=== PATIENT | female | born 1990 | race Caucasian/White ===

== ENCOUNTER 2016-06-22 22:18 | Emergency (ER) | payer BC ==
--- NOTE | 2016-06-23 01:42 | ED ORDER SUMMARY ---
..... Patient: PATY ZARATE OrderSheet [facility] VisitID: [id number] [place] [address] 26y, F Registration Date/Time: 06/22/2016 ORDER SHEET Weight: 82.5 kg (stated) Allergies: Albuterol, Sulfa Antibiotics GENERAL ORDERS: CBC w Diff Urgent (22:49 06/22/2016 JQuivey R.N. per protocol) (Ack 22:51 [facility] Switchman) (22:58 [facility]) CMP Urgent (22:49 06/22/2016 JQuivey R.N. per protocol) (Ack 22:51 [facility]) (22:58 [facility]) UA-Culture if indicated Urgent (22:49 06/22/2016 JQuivey R.N. per protocol) (Ack 22:51 [facility]) (0:43 JQuivey R.N.) Lipase Urgent (22:56 06/22/2016 Alexia Cannon) (Ack 22:57 [facility]) (22:58 [facility]) MEDICATION ORDERS: IV FLUIDS: Zofran IV 4 mg (NOW) (22:49 06/22/2016 JQuivey R.N. per protocol) (22:51 JQuivey R.N.) IV NS : initial bolus none -, then 1000 mL/hr (NOW) (22:49 06/22/2016 JQuivey R.N. per protocol) (22:51 JQuivey R.N.) IV NS : initial bolus 1000 mL (1000 mL/hr), then none - for X1 (NOW) (22:55 06/22/2016 Alexia Cannon) (Cancelled: Duplicate Order23:53 JQuivey R.N.) Zofran IV 4 mg (NOW) (00:44 06/23/2016 Alexia Cannon) (0:47 JQuivey R.N.) ORDER SHEET NOTES: [Electronically signed by Danny Pink R.N. (01:58 06/23/2016)] [Electronically signed by Cirilo Miramontes Dr. (05:11 06/28/2016)] [Electronically locked/signed by Danny Pink R.N. (01:58 06/23/2016)]
--- NOTE | 2016-06-23 01:42 | ED CLINICAL REPORT ---
Clinical Report - Physicians/Mid Levels [facility] [address] [place] [address] 06/22/2016 22:19 Patient: PATY ZARATE Arrived- By private vehicle. Historian- patient. HISTORY OF PRESENT ILLNESS Chief Complaint: VOMITING. This started today and is still present. It was abrupt in onset and has been intermittent but is not gone now. No recent travel. She has had nausea and vomiting. No diarrhea, black stools, bloody stools or known contact with a sick individual. She has had mild, crampy abdominal pain (only with vomiting). The pain is described as located in the epigastrium. Has not recently been camping or on antibiotics. Possible bad food exposure (ate at a small [employer] restaurant today for lunch). The illness is described as moderate. (Patient also started to have runny nose and sore throat today). Similar symptoms previously: None. Recent medical care: The patient was seen recently by a health care provider (was evaluated in [facility] for her current . Patient states that she is greater than 20 weeks . Patient reports that this is her third . Patient reports no abnormal studiesresults during this except for what she describes as hyperemesis gravidarum.). REVIEW OF SYSTEMS No chest pain or skin rash. All systems otherwise negative, except as recorded above. PAST HISTORY See nurses notes. Additional Surgeries: no known surgeries. Medications: Vitamins Oral. Allergies: Albuterol. Sulfa Antibiotics. SOCIAL HISTORY Never smoker. No alcohol use or drug use. No recent travel. Is a local resident. ADDITIONAL NOTES The nursing notes have been reviewed. PHYSICAL EXAM Vital Signs: 06/22/2016 22:25 BP: 105/54. HR: 103. RR: 16. O2 saturation: 99%. Temp: 98.5 F. Pain level now: 6/10. Blood pressure normal. Oxygen saturation normal. Appearance: Alert. Oriented X3. No acute distress. Eyes: Pupils equal, round and reactive to light. Eyes normal inspection. ENT: Ears normal. Nose normal. Pharynx normal. Neck: Normal inspection. Neck supple. CVS: Normal heart rate and rhythm. Heart sounds normal. Pulses normal. Respiratory: No respiratory distress. Breath sounds normal. Abdomen: Soft and nontender. Bowel sounds normal. (and the patient with gravid uterus Fundus is palpable above the umbilicus but below the xiphoid process.). Back: Normal inspection. Skin: Skin warm and dry. Normal skin color. No rash. Normal skin turgor. Extremities: Extremities exhibit normal ROM. No lower extremity edema. LABS, X-RAYS, AND EKG Laboratory Tests: UA-Culture if indicated: (SASHA: 06/23/2016 00:45) ( Mscvd 06/23/2016 01:08) Final results Test Result Flag Units (Reference) URINE COLOR YELLOW URINE APPEARANCE CLEAR URINE GLUCOSE NEGATIVE (NEGATIVE) URINE BILIRUBIN NEGATIVE (NEGATIVE) URINE KETONE 2+ (NEGATIVE) URINE SPECIFIC GRAVITY 1.015 (1.010-1.030) URINE PH 6.0 (5.0-8.0) URINE PROTEIN NEGATIVE (NEGATIVE) URINE UROBILINOGEN 0.2 EU/dL (0.2-1.0) URINE NITRITE NEGATIVE (NEGATIVE) URINE BLOOD NEGATIVE (NEGATIVE) URINE LEUK ESTERASE NEGATIVE (NEGATIVE) URINE RBC 0-1 rbc/hpf (0-1) URINE WBC 0-1 wbc/hpf (0-1) URINE EPITHELIAL CELLS 0-1 EPI/hpf (0-5) URINE BACTERIA NONE SEEN (NONE SEEN) URINE COMMENT CULT NOT INDICATED URINE CULTURES ARE SET-UP BASED ON THE FOLLOWING CRITERIA:POSITIVE NITRITEPOSITIVE LEUKOCYTE ESTERASEGREATER THAN 10 WHITE BLOOD CELLSMODERATE (2+) OR GREATER BACTERIA CBC w Diff: (SASHA: 06/22/2016 22:42) ( Mscvd 06/22/2016 22:55) Final results Test Result Flag Units (Reference) WHITE BLOOD COUNT 16.9 H K/uL (4.5-11.5) RED BLOOD COUNT 4.11 M/uL (4.00-5.20) HEMOGLOBIN 12.4 gm/dL (12.0-16.0) HEMATOCRIT 36.1 % (36.0-46.0) MEAN CELL VOLUME 88 fL (80-100) MEAN CORPUSCULAR HGB 30 pg (26-34) MEAN CORPUSCULAR HGB CONC 34 g/dL (31-37) RED CELL DISTRIBUTION WIDTH 13.6 % (11.6-14.8) PLATELET COUNT 333 K/uL (150-400) LYMPH % 7.8 L % (25-40) MONO % 4.1 % (3-14) GRANULOCYTE % 88.1 (53-90) Lipase: (SASHA: 06/22/2016 22:42) ( MsgRcvd 06/22/2016 23:07) Final results Test Result Flag Units (Reference) LIPASE 143 U/L (73-393) CMP: (SASHA: 06/22/2016 22:42) ( MsgRcvd 06/22/2016 23:06) Final results Test Result Flag Units (Reference) GLUCOSE 123 H mg/dL (70-110) BUN 12 mg/dL (7-18) CREATININE 0.5 L mg/dL (0.6-1.3) Estimated GFR >60 mL/min Estimated GFR- >60 mL/min Note: Persistent reduction over 3 months in eGFR<60 mL/min/1.73 m2 defines CKD. Patients with eGFR values>=60 mL/min/1.73 m2 may also have CKD if evidence ofpersistent proteinuria. Additional information may be foundat www.kidney.org. SODIUM 140 mmol/L (136-145) POTASSIUM 4.0 mmol/L (3.5-5.1) CHLORIDE 105 mmol/L (98-107) CARBON DIOXIDE 23 mmol/L (21-32) CALCIUM 8.2 L mg/dL (8.5-10.1) TOTAL PROTEIN 6.9 g/dL (6.4-8.2) ALBUMIN 2.8 L g/dL (3.3-5.0) BILIRUBIN, TOTAL 0.3 mg/dL (0.0-1.0) ALKALINE PHOSPHATASE 95 U/L (46-116) AST (SGOT) 14 L U/L (15-37) ALT (SGPT) 25 U/L (12-78) . PROGRESS AND PROCEDURES Course of Care: The patient is a pleasant 26-year-old female who isgreater than 20 weeks was evaluated by [facility] for her nausea and vomitingthat started earlier today. Patient appears nontoxic and is in no acute distress at this time. Patient with recent new food exposure. Patient without any other concerning elements to her history or examination. Patient be evaluated withcomplete blood cell count, CMP, urinalysis, and lipase. Patient has a nontender abdominal examination. Patient is agreeable to treatment and plan. per patient, MOLD CARRIER states that there is no problems with her at this time. Patient reports normal amount of movement. The patient's workup was noted to be unremarkable. No signs of urinary tract infection. Lipase is not elevated. No signs of acute pancreatitis. Lateralize and blood count are otherwise unremarkable. Because the patient's normal laboratory studies and current , do not feel patient needs to admitted to the hospital require further emergency department evaluation. Patient encouraged to follow up with her primary care doctor and [facility] in regards to her symptoms today. Patient is a stable outpatient candidate. Patient is reliable and has good outpatient resources. Discussed with patient workup, diagnosis, home care, follow-up, and return precautions. All questions answered. The patient expressed understanding of these instructions and was agreeable to them. The patient is able to tolerate by mouth. I discussion with patient in regards to her elevated heart rate. Patient states that she would prefer to manage the elevated heart rate at home. Disposition: Discharged. Condition: good. CLINICAL IMPRESSION Vomiting with nausea. Mild dehydration INSTRUCTIONS Warnings: GENERAL WARNINGS: Return or contact your physician immediately if your condition worsens or changes unexpectedly, if not improving as expected, or if other problems arise. SPECIFICALLY, return if you develop pain, fever, vomiting, the inability to keep fluids down, blood in vomitus, blood in diarrhea, fainting or lightheadedness. Your Current Medications: CONTINUE TAKING THE FOLLOWING MEDICATIONS: Vitamins Oral. Follow-up: Return to the emergency department as needed. Follow up with a specialist your inside wirer in three days. Reason for referral: recheck today's concerns. Summary of care provided to patient via paper. Follow up with your doctor in three days. Reason for referral: recheck today's concerns. Summary of care provided to patient via paper. Screening today revealed the patient's blood pressure to be in the normal range. The patient should follow up with a primary care provider for blood pressure management. Understanding of the discharge instructions verbalized by patient. (Electronically signed by Cirilo Miramontes Dr. 06/28/2016 5:11)
--- NOTE | 2016-06-23 01:42 | ED CLINICAL REPORT ---
Clinical Report - Physicians/Mid Levels [facility] [address] [place] [address] 06/22/2016 22:19 Patient: PATY ZARATE Arrived- By private vehicle. Historian- patient. HISTORY OF PRESENT ILLNESS Chief Complaint: VOMITING. This started today and is still present. It was abrupt in onset and has been intermittent but is not gone now. No recent travel. She has had nausea and vomiting. No diarrhea, black stools, bloody stools or known contact with a sick individual. She has had mild, crampy abdominal pain (only with vomiting). The pain is described as located in the epigastrium. Has not recently been camping or on antibiotics. Possible bad food exposure (ate at a small [employer] restaurant today for lunch). The illness is described as moderate. (Patient also started to have runny nose and sore throat today). Similar symptoms previously: None. Recent medical care: The patient was seen recently by a health care provider (was evaluated in CHEMICAL PRODUCTION MACHINE OPERATOR for her current . Patient states that she is greater than 20 weeks . Patient reports that this is her third . Patient reports no abnormal studiesresults during this except for what she describes as hyperemesis gravidarum.). REVIEW OF SYSTEMS No chest pain or skin rash. All systems otherwise negative, except as recorded above. PAST HISTORY See nurses notes. Additional Surgeries: no known surgeries. Medications: Vitamins Oral. Allergies: Albuterol. Sulfa Antibiotics. SOCIAL HISTORY Never smoker. No alcohol use or drug use. No recent travel. Is a local resident. ADDITIONAL NOTES The nursing notes have been reviewed. PHYSICAL EXAM Vital Signs: 06/22/2016 22:25 BP: 105/54. HR: 103. RR: 16. O2 saturation: 99%. Temp: 98.5 F. Pain level now: 6/10. Blood pressure normal. Oxygen saturation normal. Appearance: Alert. Oriented X3. No acute distress. Eyes: Pupils equal, round and reactive to light. Eyes normal inspection. ENT: Ears normal. Nose normal. Pharynx normal. Neck: Normal inspection. Neck supple. CVS: Normal heart rate and rhythm. Heart sounds normal. Pulses normal. Respiratory: No respiratory distress. Breath sounds normal. Abdomen: Soft and nontender. Bowel sounds normal. (and the patient with gravid uterus Fundus is palpable above the umbilicus but below the xiphoid process.). Back: Normal inspection. Skin: Skin warm and dry. Normal skin color. No rash. Normal skin turgor. Extremities: Extremities exhibit normal ROM. No lower extremity edema. LABS, X-RAYS, AND EKG Laboratory Tests: UA-Culture if indicated: (SASHA: 06/23/2016 00:45) ( Mscvd 06/23/2016 01:08) Final results Test Result Flag Units (Reference) URINE COLOR YELLOW URINE APPEARANCE CLEAR URINE GLUCOSE NEGATIVE (NEGATIVE) URINE BILIRUBIN NEGATIVE (NEGATIVE) URINE KETONE 2+ (NEGATIVE) URINE SPECIFIC GRAVITY 1.015 (1.010-1.030) URINE PH 6.0 (5.0-8.0) URINE PROTEIN NEGATIVE (NEGATIVE) URINE UROBILINOGEN 0.2 EU/dL (0.2-1.0) URINE NITRITE NEGATIVE (NEGATIVE) URINE BLOOD NEGATIVE (NEGATIVE) URINE LEUK ESTERASE NEGATIVE (NEGATIVE) URINE RBC 0-1 rbc/hpf (0-1) URINE WBC 0-1 wbc/hpf (0-1) URINE EPITHELIAL CELLS 0-1 EPI/hpf (0-5) URINE BACTERIA NONE SEEN (NONE SEEN) URINE COMMENT CULT NOT INDICATED URINE CULTURES ARE SET-UP BASED ON THE FOLLOWING CRITERIA:POSITIVE NITRITEPOSITIVE LEUKOCYTE ESTERASEGREATER THAN 10 WHITE BLOOD CELLSMODERATE (2+) OR GREATER BACTERIA CBC w Diff: (SASHA: 06/22/2016 22:42) ( Mscvd 06/22/2016 22:55) Final results Test Result Flag Units (Reference) WHITE BLOOD COUNT 16.9 H K/uL (4.5-11.5) RED BLOOD COUNT 4.11 M/uL (4.00-5.20) HEMOGLOBIN 12.4 gm/dL (12.0-16.0) HEMATOCRIT 36.1 % (36.0-46.0) MEAN CELL VOLUME 88 fL (80-100) MEAN CORPUSCULAR HGB 30 pg (26-34) MEAN CORPUSCULAR HGB CONC 34 g/dL (31-37) RED CELL DISTRIBUTION WIDTH 13.6 % (11.6-14.8) PLATELET COUNT 333 K/uL (150-400) LYMPH % 7.8 L % (25-40) MONO % 4.1 % (3-14) GRANULOCYTE % 88.1 (53-90) Lipase: (SASHA: 06/22/2016 22:42) ( MsgRcvd 06/22/2016 23:07) Final results Test Result Flag Units (Reference) LIPASE 143 U/L (73-393) CMP: (SASHA: 06/22/2016 22:42) ( MsgRcvd 06/22/2016 23:06) Final results Test Result Flag Units (Reference) GLUCOSE 123 H mg/dL (70-110) BUN 12 mg/dL (7-18) CREATININE 0.5 L mg/dL (0.6-1.3) Estimated GFR >60 mL/min Estimated GFR- >60 mL/min Note: Persistent reduction over 3 months in eGFR<60 mL/min/1.73 m2 defines CKD. Patients with eGFR values>=60 mL/min/1.73 m2 may also have CKD if evidence ofpersistent proteinuria. Additional information may be foundat www.kidney.org. SODIUM 140 mmol/L (136-145) POTASSIUM 4.0 mmol/L (3.5-5.1) CHLORIDE 105 mmol/L (98-107) CARBON DIOXIDE 23 mmol/L (21-32) CALCIUM 8.2 L mg/dL (8.5-10.1) TOTAL PROTEIN 6.9 g/dL (6.4-8.2) ALBUMIN 2.8 L g/dL (3.3-5.0) BILIRUBIN, TOTAL 0.3 mg/dL (0.0-1.0) ALKALINE PHOSPHATASE 95 U/L (46-116) AST (SGOT) 14 L U/L (15-37) ALT (SGPT) 25 U/L (12-78) . PROGRESS AND PROCEDURES Course of Care: The patient is a pleasant 26-year-old female who isgreater than 20 weeks was evaluated by CHEMICAL PRODUCTION MACHINE OPERATOR for her nausea and vomitingthat started earlier today. Patient appears nontoxic and is in no acute distress at this time. Patient with recent new food exposure. Patient without any other concerning elements to her history or examination. Patient be evaluated withcomplete blood cell count, CMP, urinalysis, and lipase. Patient has a nontender abdominal examination. Patient is agreeable to treatment and plan. per patient, CHEMICAL PRODUCTION MACHINE OPERATOR states that there is no problems with her at this time. Patient reports normal amount of movement. The patient's workup was noted to be unremarkable. No signs of urinary tract infection. Lipase is not elevated. No signs of acute pancreatitis. Lateralize and blood count are otherwise unremarkable. Because the patient's normal laboratory studies and current , do not feel patient needs to admitted to the hospital require further emergency department evaluation. Patient encouraged to follow up with her primary care doctor and CHEMICAL PRODUCTION MACHINE OPERATOR in regards to her symptoms today. Patient is a stable outpatient candidate. Patient is reliable and has good outpatient resources. Discussed with patient workup, diagnosis, home care, follow-up, and return precautions. All questions answered. The patient expressed understanding of these instructions and was agreeable to them. The patient is able to tolerate by mouth. I discussion with patient in regards to her elevated heart rate. Patient states that she would prefer to manage the elevated heart rate at home. Disposition: Discharged. Condition: good. CLINICAL IMPRESSION Vomiting with nausea. Mild dehydration INSTRUCTIONS Warnings: GENERAL WARNINGS: Return or contact your physician immediately if your condition worsens or changes unexpectedly, if not improving as expected, or if other problems arise. SPECIFICALLY, return if you develop pain, fever, vomiting, the inability to keep fluids down, blood in vomitus, blood in diarrhea, fainting or lightheadedness. Your Current Medications: CONTINUE TAKING THE FOLLOWING MEDICATIONS: Vitamins Oral. Follow-up: Return to the emergency department as needed. Follow up with a specialist your managed care nurse in three days. Reason for referral: recheck today's concerns. Summary of care provided to patient via paper. Follow up with your doctor in three days. Reason for referral: recheck today's concerns. Summary of care provided to patient via paper. Screening today revealed the patient's blood pressure to be in the normal range. The patient should follow up with a primary care provider for blood pressure management. Understanding of the discharge instructions verbalized by patient. (Electronically signed by Cirilo Miramontes Dr. 06/28/2016 5:11)
--- NOTE | 2016-06-23 01:42 | ED NURSING NOTES ---
Clinical Report - Nurses [facility] [address] [place] [address] 06/22/2016 22:19 Patient: PATY ZARATE TRIAGE Triage time 22:25. Acuity: LEVEL 3. Chief Complaint: ABDOMINAL PAIN, NAUSEA and VOMITING. 22:30. Alert. SEPSIS SCREEN: Sepsis Screen. Negative (no infection suspected/documented). --22:30 Danny Pink R.N. 22:25 06/22/16. BP: 105/54. HR: 103. RR: 16. O2 saturation: 99% on room air. Temp: 98.5 F (oral). Pain level now: 11/10. --22:30 Danny Pink R.N. Weight: 82.5 kg stated. Height/Length: 64 inches Per Patient. BMI: 31.2. --22:27 Danny Pink R.N. Medications Vitamins Oral. --22:27 Danny Pink R.N. Allergies Albuterol. Sulfa Antibiotics. --22:27 Danny Pink R.N. Medication/allergy information source: the patient. --22:30 Danny Pink R.N. History Arrived by private vehicle. Historian: patient. Accompanied by friend. Primary physician (None). Onset. (about 1700). ( Patient reports N&V that started about 1700 - was evaluated in OB here before being sent here). Treatment FOOD SERVICE STEWARD: (Tums). PAST MEDICAL HX: Immunizations: up-to-date. Last normal menstrual period- September 2015. Confirmed . confirmed with urine test, serum test and sonogram. G 3. P 1. Ab 1. SOCIAL HX: Former smoker, end date 05/2016. No alcohol use or drug use. No recent travel. No infectious disease exposure. ABUSE ASSESSMENT: No report of abuse. FALL RISK ASSESSMENT: Fall risk assessment completed. No fall risk identified. NUTRITIONAL RISK ASSESSMENT: The nutritional risk assessment revealed no deficiencies. FUNCTIONAL ASSESSMENT: Functional assessment: no impairments noted. LEARNING NEEDS ASSESSMENT: The learning needs assessment revealed no barriers. SKIN INTEGRITY ASSESSMENT: Skin integrity risk assessment completed. No skin integrity risk identified. --22:30 Danny Pink R.N. PROBLEMS: no known problems. ADDITIONAL SURGERIES: no known surgeries. Interventions ID band on patient. To treatment room. --22:30 Danny Pink R.N. PHYSICAL ASSESSMENT 22:31. Ambulatory to room. Patient gowned. GENERAL / NEURO / PSYCH: Alert. Oriented X 4. HEENT: Mucous membranes are pink. RESPIRATORY: Respirations not labored. SKIN: Skin is warm and dry. --22:31 Danny Pink R.N. NURSING PROGRESS NOTES 22:31. Head of bed elevated. Two patient identifiers checked. Call light placed in reach. Side rails up x 1. Bed placed in lowest position. Brakes of bed on. Patient ready for evaluation- chart flagged. --22:31 Danny Pink R.N. 22:43 06/22/2016 Started bag #1 1000 mL IV Fluids IV NS (Saline); at 1000 mL/hr over 1 hour(s) via site #1 --22:51 Danny Pink R.N. 22:45 06/22/2016 Site #1 started via IV in the left antecubital space with an 20g angiocath, with aseptic technique and good blood return; one attempt. Blood drawn: rainbow set. Labeled in the presence of the patient and sent to the lab. Saline lock flushed with 10 mL saline. --22:50 Danny Pink R.N. 22:48 06/22/2016 Zofran (Ondansetron HCl) IVP 4 mg given over 2 minute(s) via site #1. Allergies verified and confirmed 5 rights. IV patency established. IV site checked: no pain, redness, or swelling. IV flushed thoroughly pre- and post-medication administration. --22:51 Danny Pink R.N. 00:27 Patient to restroom to collect urine sample. --00:27 Danny Pink R.N. 00:13 06/23/2016 IV Fluids IV NS Discontinued: bag #1 infused. Total amount infused: 1000 mL. IV patency established. IV site checked: no pain, redness, or swelling. IV flushed thoroughly. --00:30 Danny Pink R.N. 00:30. Patient ID band checked for patient name and birthdate: patient confirmed. Clean catch urine collected with return of yellow-colored clear urine; sample sent to lab for urinalysis. Specimen labeled in the presence of the patient. --00:42 Danny Pink R.N. 00:42 06/23/16. BP: 114/65. HR: 102. RR: 16. O2 saturation: 99% on room air. --00:42 Danny Pink R.N. 00:47 06/23/2016 Zofran (Ondansetron HCl) IVP 4 mg given over 2 minute(s) via site #1. Allergies verified and confirmed 5 rights. IV patency established. IV site checked: no pain, redness, or swelling. IV flushed thoroughly pre- and post-medication administration. --00:47 Danny Pink R.N. 01:47. The patient is calm and resting quietly. SKIN: Skin is warm and dry. Skin color within normal limits. --01:54 Danny Pink R.N. DISPOSITION / DISCHARGE 01:46 06/23/2016 Site #1 removed upon discharge. Catheter intact. Bandage applied. --01:52 Danny Pink R.N. Departure time: 01:50. Condition at departure: stable. No learning barriers present. Patient verbalized understanding. Written instructions provided in Arabic. The patient was discharged home and accompanied by chief librarian work with blind. She left the Emergency Department ambulatory and via private vehicle. Monorail Helper driving. FALL RISK ASSESSMENT: Fall risk assessment completed. No fall risk identified. --01:54 Danny Pink R.N. 01:45 06/23/16. BP: 119/72. HR: 101. RR: 16. O2 saturation: 98% on room air. Pain level now: 0/10. --01:54 Danny Pink R.N. Locked/Released at 06/23/2016 1:58 by Danny Pink R.N.
--- NOTE | 2016-06-23 01:42 | ED ORDER SUMMARY ---
..... Patient: PATY ZARATE OrderSheet [facility] VisitID: [id number] [place] [address] 26y, F Registration Date/Time: 06/22/2016 ORDER SHEET Weight: 82.5 kg (stated) Allergies: Albuterol, Sulfa Antibiotics GENERAL ORDERS: CBC w Diff Urgent (22:49 06/22/2016 JQuivey R.N. per protocol) (Ack 22:51 [facility] Software Qa System Specialist) (22:58 [facility] Software Qa System Specialist) CMP Urgent (22:49 06/22/2016 JQuivey R.N. per protocol) (Ack 22:51 [facility] Software Qa System Specialist) (22:58 [facility] Software Qa System Specialist) UA-Culture if indicated Urgent (22:49 06/22/2016 JQuivey R.N. per protocol) (Ack 22:51 [facility] Software Qa System Specialist) (0:43 JQuivey R.N.) Lipase Urgent (22:56 06/22/2016 Alexia Cannon) (Ack 22:57 [facility] Software Qa System Specialist) (22:58 [facility] Software Qa System Specialist) MEDICATION ORDERS: IV FLUIDS: Zofran IV 4 mg (NOW) (22:49 06/22/2016 JQuivey R.N. per protocol) (22:51 JQuivey R.N.) IV NS : initial bolus none -, then 1000 mL/hr (NOW) (22:49 06/22/2016 JQuivey R.N. per protocol) (22:51 JQuivey R.N.) IV NS : initial bolus 1000 mL (1000 mL/hr), then none - for X1 (NOW) (22:55 06/22/2016 Alexia Cannon) (Cancelled: Duplicate Order23:53 JQuivey R.N.) Zofran IV 4 mg (NOW) (00:44 06/23/2016 Alexia Cannon) (0:47 JQuivey R.N.) ORDER SHEET NOTES: [Electronically signed by Danny Pink R.N. (01:58 06/23/2016)] [Electronically signed by Cirilo Miramontes Dr. (05:11 06/28/2016)] [Electronically locked/signed by Danny Pink R.N. (01:58 06/23/2016)]
--- NOTE | 2016-06-23 01:42 | ED NURSING NOTES ---
Clinical Report - Nurses [facility] [address] [place] [address] 06/22/2016 22:19 Patient: PATY ZARATE TRIAGE Triage time 22:25. Acuity: LEVEL 3. Chief Complaint: ABDOMINAL PAIN, NAUSEA and VOMITING. 22:30. Alert. SEPSIS SCREEN: Sepsis Screen. Negative (no infection suspected/documented). --22:30 Danny Pink R.N. 22:25 06/22/16. BP: 105/54. HR: 103. RR: 16. O2 saturation: 99% on room air. Temp: 98.5 F (oral). Pain level now: 11/10. --22:30 Danny Pink R.N. Weight: 82.5 kg stated. Height/Length: 64 inches Per Patient. BMI: 31.2. --22:27 Danny Pink R.N. Medications Vitamins Oral. --22:27 Danny Pink R.N. Allergies Albuterol. Sulfa Antibiotics. --22:27 Danny Pink R.N. Medication/allergy information source: the patient. --22:30 Danny Pink R.N. History Arrived by private vehicle. Historian: patient. Accompanied by friend. Primary physician (None). Onset. (about 1700). ( Patient reports N&V that started about 1700 - was evaluated in OB here before being sent here). Treatment NUCLEAR EQUIPMENT TEST ENGINEER: (Tums). PAST MEDICAL HX: Immunizations: up-to-date. Last normal menstrual period- September 2015. Confirmed . confirmed with urine test, serum test and sonogram. G 3. P 1. Ab 1. SOCIAL HX: Former smoker, end date 05/2016. No alcohol use or drug use. No recent travel. No infectious disease exposure. ABUSE ASSESSMENT: No report of abuse. FALL RISK ASSESSMENT: Fall risk assessment completed. No fall risk identified. NUTRITIONAL RISK ASSESSMENT: The nutritional risk assessment revealed no deficiencies. FUNCTIONAL ASSESSMENT: Functional assessment: no impairments noted. LEARNING NEEDS ASSESSMENT: The learning needs assessment revealed no barriers. SKIN INTEGRITY ASSESSMENT: Skin integrity risk assessment completed. No skin integrity risk identified. --22:30 Danny Pink R.N. PROBLEMS: no known problems. ADDITIONAL SURGERIES: no known surgeries. Interventions ID band on patient. To treatment room. --22:30 Danny Pink R.N. PHYSICAL ASSESSMENT 22:31. Ambulatory to room. Patient gowned. GENERAL / NEURO / PSYCH: Alert. Oriented X 4. HEENT: Mucous membranes are pink. RESPIRATORY: Respirations not labored. SKIN: Skin is warm and dry. --22:31 Danny Pink R.N. NURSING PROGRESS NOTES 22:31. Head of bed elevated. Two patient identifiers checked. Call light placed in reach. Side rails up x 1. Bed placed in lowest position. Brakes of bed on. Patient ready for evaluation- chart flagged. --22:31 Danny Pink R.N. 22:43 06/22/2016 Started bag #1 1000 mL IV Fluids IV NS (Saline); at 1000 mL/hr over 1 hour(s) via site #1 --22:51 Danny Pink R.N. 22:45 06/22/2016 Site #1 started via IV in the left antecubital space with an 20g angiocath, with aseptic technique and good blood return; one attempt. Blood drawn: rainbow set. Labeled in the presence of the patient and sent to the lab. Saline lock flushed with 10 mL saline. --22:50 Danny Pink R.N. 22:48 06/22/2016 Zofran (Ondansetron HCl) IVP 4 mg given over 2 minute(s) via site #1. Allergies verified and confirmed 5 rights. IV patency established. IV site checked: no pain, redness, or swelling. IV flushed thoroughly pre- and post-medication administration. --22:51 Danny Pink R.N. 00:27 Patient to restroom to collect urine sample. --00:27 Danny Pink R.N. 00:13 06/23/2016 IV Fluids IV NS Discontinued: bag #1 infused. Total amount infused: 1000 mL. IV patency established. IV site checked: no pain, redness, or swelling. IV flushed thoroughly. --00:30 Danny Pink R.N. 00:30. Patient ID band checked for patient name and birthdate: patient confirmed. Clean catch urine collected with return of yellow-colored clear urine; sample sent to lab for urinalysis. Specimen labeled in the presence of the patient. --00:42 Danny Pink R.N. 00:42 06/23/16. BP: 114/65. HR: 102. RR: 16. O2 saturation: 99% on room air. --00:42 Danny Pink R.N. 00:47 06/23/2016 Zofran (Ondansetron HCl) IVP 4 mg given over 2 minute(s) via site #1. Allergies verified and confirmed 5 rights. IV patency established. IV site checked: no pain, redness, or swelling. IV flushed thoroughly pre- and post-medication administration. --00:47 Danny Pink R.N. 01:47. The patient is calm and resting quietly. SKIN: Skin is warm and dry. Skin color within normal limits. --01:54 Danny Pink R.N. DISPOSITION / DISCHARGE 01:46 06/23/2016 Site #1 removed upon discharge. Catheter intact. Bandage applied. --01:52 Danny Pink R.N. Departure time: 01:50. Condition at departure: stable. No learning barriers present. Patient verbalized understanding. Written instructions provided in Faroese. The patient was discharged home and accompanied by automotive collision repair instructor. She left the Emergency Department ambulatory and via private vehicle. Technical Sales Advisor driving. FALL RISK ASSESSMENT: Fall risk assessment completed. No fall risk identified. --01:54 Danny Pink R.N. 01:45 06/23/16. BP: 119/72. HR: 101. RR: 16. O2 saturation: 98% on room air. Pain level now: 0/10. --01:54 Danny Pink R.N. Locked/Released at 06/23/2016 1:58 by Danny Pink R.N.
--- NOTE | 2016-06-28 05:11 | ED MAR SUMMARY ---
..... Medication Administration Record [facility] [address] [place] [address] Patient: PATY ZARATE Visit ID: [id number] 26y, F Weight: 82.5 kg Height/Length: 64 in BMI: 31.2 ALLERGIES: Sulfa Antibiotics, Albuterol Start 22:43 06/22/2016 Danny Pink RTatianaN., Stop 00:13 06/23/2016 Danny Pink R.N. Medication Administered: IV NS (SALINE), Dose: IV Fluids over 1 hour(s), Rate: 1000 mL/hr, Dispensed: 1000 mL bag, Site: #1. Medication Ordered: IV NS : initial bolus none -, then 1000 mL/hr (NOW). Given 22:48 06/22/2016 Danny Pink R.N. Medication Administered: ZOFRAN [IVP] (ONDANSETRON HCL), Dose: 4 mg IVP over 2 minute(s), Site: #1 left AC. Medication Ordered: Zofran IV 4 mg (NOW). Given 00:47 06/23/2016 Danny Pink R.N. Medication Administered: ZOFRAN [IVP] (ONDANSETRON HCL), Dose: 4 mg IVP over 2 minute(s), Site: #1 left AC. Medication Ordered: Zofran IV 4 mg (NOW).
--- NOTE | 2016-06-28 05:11 | ED DISCHARGE INSTRUCTIONS ---
Patient: PATY ZARATE General Instructions [facility] VisitID: [id number] [place] [address] 26y, F Registration Date/Time: 06/22/2016 Vomiting with nausea. Mild dehydration INSTRUCTIONS Warnings: GENERAL WARNINGS: Return or contact your physician immediately if your condition worsens or changes unexpectedly, if not improving as expected, or if other problems arise. SPECIFICALLY, return if you develop pain, fever, vomiting, the inability to keep fluids down, blood in vomitus, blood in diarrhea, fainting or lightheadedness. Your Current Medications: CONTINUE TAKING THE FOLLOWING MEDICATIONS: Vitamins Oral. Follow-up: Return to the emergency department as needed. Follow up with a specialist your donor center technician in three days. Reason for referral: recheck today's concerns. Summary of care provided to patient via paper. Follow up with your doctor in three days. Reason for referral: recheck today's concerns. Summary of care provided to patient via paper. Screening today revealed the patient's blood pressure to be in the normal range. The patient should follow up with a primary care provider for blood pressure management. Understanding of the discharge instructions verbalized by patient. ADDITIONAL INFORMATION Vomiting [6Yr-Adult] Vomiting is a common symptom that may be due to different causes. These include gastroenteritis ("stomach flu"), food poisoning and gastritis. There are other more serious causes of vomiting which may be hard to diagnose early in the illness. Therefore, it is important to watch for the warning signs listed below. The main danger from repeated vomiting is dehydration. This is due to excess loss of water and minerals from the body. When this occurs, body fluids must be replaced. Home Care: If symptoms are severe, rest at home for the next 24 hours. You may use acetaminophen (Tylenol) or ibuprofen (Motrin, Advil) to control fever, unless another medicine was prescribed. [NOTE : If you have chronic liver or kidney disease or ever had a stomach ulcer or GI bleeding, talk with your doctor before using these medicines.] (Aspirin should never be used in anyone under 18 years of age who is ill with a fever. It may cause severe liver damage.) Avoid tobacco and alcohol use, which may worsen your symptoms. If medicines for vomiting were prescribed, take as directed. Once vomiting stops, then follow these guidelines: During The First 12-24 Hours follow the diet below: FRUIT JUICES: Apple, grape juice, clear fruit drinks, and electrolyte replacement drinks. BEVERAGES: Soft drinks without caffeine; mineral water (plain or flavored), decaffeinated tea and coffee. SOUPS: Clear broth, consomm and bouillon DESSERTS: Plain gelatin, popsicles and fruit juice bars. As you feel better, you may add 6-8 ounces of yogurt per day. During The Next 24 Hours you may add the following to the above: Hot cereal, plain toast, bread, rolls, crackers Plain noodles, rice, mashed potatoes, chicken noodle or rice soup Unsweetened canned fruit (avoid pineapple), bananas Limit caffeine and chocolate. No spices or seasonings except salt. During The Next 24 Hours Gradually resume a normal diet, as you feel better and your symptoms lessen. Follow Up with your doctor as advised if you are not improving over the next 2-3 days. Get Prompt Medical Attention if any of the following occur: Constant right-sided lower abdominal pain or increasing general abdominal pain Continued vomiting (unable to keep liquids down) for 24 hours Frequent diarrhea (more than 5 times a day); blood (red or black color) or mucus in diarrhea Reduced urine output or extreme thirst Weakness, dizziness or fainting Unusually drowsy or confused Fever of 100.4F (38C) oral or higher, not better with fever medication Yellow color of the eyes or skin Dehydration (Adult) Dehydration occurs when your body loses too much fluid. This may be the result of vomiting a lot or from diarrhea,sweating a lot, or a high fever. It may also happen if you dont drink enough fluid when youre sick. Misuse of diuretics (water pills) can also be a cause. Symptoms include thirst and feeling dizzy, weak, fatigued, or very drowsy. The diet described below is usually enough to treat most cases. Sometimes you may needmedicine. Home Care Follow these guidelines for home care: Drink at least 12 8-ounce glasses of fluid every day to overcome the dehydration. Fluid may include water; orange juice; lemonade; apple, grape, and cranberry juice; clear fruit drinks; electrolyte replacement and sports drinks; and teas and coffee without caffeine. If you have been diagnosed with a kidney disease, ask your doctor how much and what types of fluids you should drink to prevent dehydration. If you have kidney disease, drinking too much fluid can cause it build up in the your body and be dangerous to your health. If you have fever, muscle aching, or headache from a viral syndrome, you may useacetaminophen or ibuprofen, unless another medicine was prescribed for this.If you have chronic liver or kidney disease or ever had a stomach ulcer or GI bleeding, talk with your doctor before using these medicines. Don't take aspirin if you are younger than 18 and are ill with a fever.Aspirin raises the chance forsevere liver injury. Follow-up care Follow up with your health care provider if you don't get better in the next 24 to 48 hours. When to seek medical care Get prompt medical attention if any of theseoccur: Continued vomiting (cant keep liquids down) Frequent diarrhea (more than 5 times a day); blood (red or black color) or mucus in diarrhea Blood in vomit or stool Swollen abdomen or increasing abdominal pain Weakness, dizziness, or fainting Unusually drowsy or confused Reduced urine output or extreme thirst Fever of 100.4 F (38 C) oral or higher that does not get better with fever medication You have been given the following additional information: Vomiting (6Y-Adult) Dehydration (Adult) (Electronically signed by Cirilo Miramontes Dr. 06/28/2016 5:11)
--- NOTE | 2016-06-28 05:11 | ED MAR SUMMARY ---
..... Medication Administration Record [facility] [address] [place] [address] Patient: PATY ZARATE Visit ID: [id number] 26y, F Weight: 82.5 kg Height/Length: 64 in BMI: 31.2 ALLERGIES: Sulfa Antibiotics, Albuterol Start 22:43 06/22/2016 Danny Pink RTatianaN., Stop 00:13 06/23/2016 Danny Pink R.N. Medication Administered: IV NS (SALINE), Dose: IV Fluids over 1 hour(s), Rate: 1000 mL/hr, Dispensed: 1000 mL bag, Site: #1. Medication Ordered: IV NS : initial bolus none -, then 1000 mL/hr (NOW). Given 22:48 06/22/2016 Danny Pink R.N. Medication Administered: ZOFRAN [IVP] (ONDANSETRON HCL), Dose: 4 mg IVP over 2 minute(s), Site: #1 left AC. Medication Ordered: Zofran IV 4 mg (NOW). Given 00:47 06/23/2016 Danny Pink R.N. Medication Administered: ZOFRAN [IVP] (ONDANSETRON HCL), Dose: 4 mg IVP over 2 minute(s), Site: #1 left AC. Medication Ordered: Zofran IV 4 mg (NOW).
--- NOTE | 2016-06-28 05:11 | ED MED RECONCILIATION SUMMARY ---
Patient: PATY ZARATE Medication Reconciliation Report [facility] VisitID: [id number] [address] [place] [address] 26y, F Registration Date/Time: 06/22/2016 Weight: 82.5 kg Height/Length: 64 in. BMI: 31.2 ALLERGIES: Albuterol, Sulfa Antibiotics The patient's Home Medications are listed below: CONTINUE TAKING THE FOLLOWING MEDICATIONS: Vitamins Oral The source(s) of the original Home Medication information: patient The following Medications were given to the patient in the Emergency Department: IV NS IV Fluids bolus 0, then 1000 mL/hr, administered: 06/22/2016 10:43:00 PM Zofran [IVP] IVP 4 mg, administered: 06/22/2016 10:48:00 PM Zofran [IVP] IVP 4 mg, administered: 06/23/2016 12:47:00 AM The following Medications were prescribed to the patient: None.
--- NOTE | 2016-06-28 05:11 | ED MED RECONCILIATION SUMMARY ---
Patient: PATY ZARATE Medication Reconciliation Report [facility] VisitID: [id number] [address] [place] [address] 26y, F Registration Date/Time: 06/22/2016 Weight: 82.5 kg Height/Length: 64 in. BMI: 31.2 ALLERGIES: Albuterol, Sulfa Antibiotics The patient's Home Medications are listed below: CONTINUE TAKING THE FOLLOWING MEDICATIONS: Vitamins Oral The source(s) of the original Home Medication information: patient The following Medications were given to the patient in the Emergency Department: IV NS IV Fluids bolus 0, then 1000 mL/hr, administered: 06/22/2016 10:43:00 PM Zofran [IVP] IVP 4 mg, administered: 06/22/2016 10:48:00 PM Zofran [IVP] IVP 4 mg, administered: 06/23/2016 12:47:00 AM The following Medications were prescribed to the patient: None.
== END 2016-06-23 01:50 | disposition home or self-care (01) ==
LOC: EDSTATUS 22:18 → ED SRH 22:19
DX: O21.8 Other vomiting complicating pregnancy (principal); K52.9 Noninfective gastroenteritis and colitis, unspecified; E86.0 Dehydration; Z3A.20 20 weeks gestation of pregnancy
CPT/HCPCS: 40003; 40016; 90004; 90100; 92235; 95059

== ENCOUNTER 2016-10-29 15:35 | Inpatient (IN) | payer BC ==
[~2016-10-29] VITALS: Ht 162.6 cm; Wt 102.5 kg
[2016-10-30] VITALS (9 sets, daily range): BP systolic 121–148; BP diastolic 64–83
--- NOTE | 2016-10-30 07:17 | Progress Note ---
Subjective General Patient states that she is doing ok. Has epidural not working great but helping some. Has been with slow progress per nursing and now 65% and 3cm. Has no cp,sob, fevers. Physical Exam Vital Signs / I&Os VS:BP 136/79; HR-83; T98.9 I&O 10/30 0000 10/29 1600 10/29 0800 Intake Total Output Total Balance General Appearance Alert, Oriented X3 HEENT Normal exam Lungs Normal exam Cardiovascular Regular rate and rhythm, No murmurs, gallops, rubs Extremities No edema LAB Results Laboratory Tests 10/29 1700 Hematology WBC (4.5 - 11.5 K/uL) 9.2 RBC (4.00 - 5.20 M/uL) 4.40 Hgb (12.0 - 16.0 gm/dL) 12.6 Hct (36.0 - 46.0 %) 37.9 MCV (80 - 100 fL) 86 MCH (26 - 34 pg) 29 RDW (11.6 - 14.8 %) 19.1 Neut % (Auto) (50 - 75 %) 67.0 Lymph % (Auto) (25 - 40 %) 23.7 [place] % (Auto) (3 - 14 %) 8.1 Eos % (Auto) (0 - 4 %) 0.8 Baso % (Auto) (0 - 2 %) 0.4 Plt Count, EDTA (150 - 400 K/uL) 279 PUBS MCHC (31 - 37 g/dL) 33 Toxicology Urine Opiates Screen (NEGATIVE) NEGATIVE Urine Methadone Screen (NEGATIVE) NEGATIVE Ur Barbiturates Screen (NEGATIVE) NEGATIVE U Amphetamin/Meth Scrn (NEGATIVE) NEGATIVE MDMA (Ecstasy) Screen (NEGATIVE) NEGATIVE U Benzodiazepines Scrn (NEGATIVE) NEGATIVE Urine Cocaine Screen (NEGATIVE) NEGATIVE U Cannabinoids Screen (NEGATIVE) NEGATIVE Urines Urine Color YELLOW Urine Appearance CLEAR Urine pH (5.0 - 8.0) 7.0 Ur Specific [place] (1.010 - 1.030) 1.025 Urine Protein (NEGATIVE) 1+ Urine Ketones (NEGATIVE) TRACE Urine Blood (NEGATIVE) 1+ Urine Nitrite (NEGATIVE) NEGATIVE Urine Bilirubin (NEGATIVE) NEGATIVE Urine Urobilinogen (0.2 - 1.0 EU/dL) 0.2 Ur Leukocyte Esterase (NEGATIVE) NEGATIVE Urine RBC (0 - 1 rbc/hpf) 1-3 Urine WBC (0 - 1 wbc/hpf) 0-1 Ur Epithelial Cells (0 - 5 EPI/hpf) 1-3 Urine Bacteria (NONE SEEN) TRACE (<1+) Urine Glucose (NEGATIVE) NEGATIVE Urine Comment CULT NOT INDICATED Assessment and Plan Problem List 1. Normal labor Plan Is doing ok, slow progress FHT: baseline 130 + accels no decels. Still not active phase; has epidural as she has SROM and on pit and wouldn't database management system specialist. Will continue to hope she progresses.
--- NOTE | 2016-10-30 07:53 | Progress Note ---
Subjective General Lots of pain, has been miserable with contractions. Physical Exam Vital Signs / I&Os I&O 10/30 0000 10/29 1600 10/29 0800 Intake Total Output Total Balance Pelvic 6cm/90%/-2 Assessment and Plan Problem List 1. Normal labor
--- NOTE | 2016-10-30 10:08 | Progress Note ---
Physical Exam Pelvic 8cm 90% -2, FHT 130 moderate variability, occasional variable decel + accels Assessment and Plan Problem List 1. Normal labor Plan rolonged rom, no fever, labor progressing, expectant management.
--- NOTE | 2016-10-30 13:37 | Progress Note ---
Subjective General Still lots of pain, progress steady slow. No fevers. no issues with baby. Physical Exam Vital Signs / I&Os I&O 10/30 0000 10/29 1600 10/29 0800 Intake Total Output Total Balance Pelvic 9cm/100%/-2, moderate variability FHT 130; ctxns q 2-4min Assessment and Plan Problem List 1. Normal labor Plan prolonged ROM, no fevers, hold on abx. Progressing and likely pushing in a couple hours. Poor pain control and not wanting to have pull of the epidural will continue.
--- NOTE | 2016-10-30 15:16 | Progress Note ---
Subjective General Lots of pain and low progression. ? if done with labor. Would like IUPC as she has been stalled at 9cm for around 2 hrs. Physical Exam Vital Signs / I&Os I&O 10/30 0000 10/29 1600 10/29 0800 Intake Total Output Total Balance Pelvic 9cm/100%/-1, FHT 130 moderate variability, variable decels occasional Assessment and Plan Problem List 1. Labor abnormal Plan slow progress ? stalled. Will have her try IUPC and then see if progress. Discussed may need CSection if not progressing.
--- NOTE | 2016-10-30 18:17 | Progress Note ---
Subjective General Doing ok complete and pushing still pain but a little better with pushing. Physical Exam Vital Signs / I&Os T- 98.2 I&O 10/30 0000 10/29 1600 10/29 0800 Intake Total Output Total Balance General Appearance Alert Pelvic VE- complete and pushing Other Contractions q 2 min; FHT 130+ deccels rare variable, mod variability cat 1 Assessment and Plan Problem List 1. Normal labor Plan Is doing better, complete and pushing. Is now +2 and could try vac if needed. Normal temp. Heart tones ok.
--- NOTE | 2016-10-30 20:32 | Progress Note ---
Subjective General doing well full note dictated.
--- NOTE | 2016-10-30 20:32 | Progress Note ---
Subjective General doing well full note dictated.
--- NOTE | 2016-10-30 21:40 | DELIVERY SUMMARY ---
DELIVERY DATE: 10/30/2016 ATTENDING PHYSICIAN/PROVIDER: Emmanuel Saavedra MD PREPROCEDURE DIAGNOSES: 1. Intrauterine 39 weeks gestation, term 2. Spontaneous labor 3. Spontaneous rupture of membranes 4. Prolonged rupture of membranes 5. Viable female 6. Large for gestational age 7. Second-degree laceration with repair POSTPROCEDURE DIAGNOSES: 1. Intrauterine 39 weeks gestation; term 2. Spontaneous labor 3. Spontaneous rupture of membranes 4. Prolonged rupture of membranes 5. Viable female infant 6. Large for gestational age 7. Second-degree laceration with repair PROCEDURES PERFORMED: 1. Normal spontaneous vaginal delivery 2. Second-degree laceration repair ESTIMATED BLOOD LOSS: 400 mL. PROCEDURE TECHNIQUE: The patient had a normal spontaneous vaginal delivery, occiput anterior position, slightly asynclitic with rotation of the head at the end. Second-degree laceration at the right inferior aspect of the vagina, inferior fourchette. There was no nuchal cord. Baby was delivered up to the maternal abdomen where the cord was clamped and cut and then with massage of the uterus the placenta was delivered spontaneously intact. There was a 3-vessel cord. There was a second-degree laceration that was repaired with the usual fashion with a running stitch and the bottom was digitally examined post- and no sutures felt. The baby was 10 pounds 6 ounces. Both mom and baby were doing well after delivery.
[2016-10-31 03:50] VITALS: BP 127/64
--- NOTE | 2016-10-31 07:35 | Progress Note ---
Subjective General Patient is doing well. Has less pain post than last time, is a little sore overall, some back pain at epidural site, generally sore. Physical Exam Vital Signs / I&Os Vital Signs Date Time Temp Pulse Resp B/P Pulse O2 O2 Flow FiO2 Ox Delivery Rate 10/31 0350 98.6 97 20 127/64 Room Air 10/30 2335 Room Air 10/30 2335 98.4 97 20 123/67 Room Air 10/30 2245 96 20 130/71 10/30 2215 100 18 121/70 10/30 2145 98 20 140/74 10/30 2115 88 18 141/83 10/30 2100 Room Air 10/30 2045 95 20 138/67 10/30 2029 98.4 96 20 141/73 10/30 2014 92 20 138/64 10/31 1999 100 20 148/82 I&O 10/31 0000 10/30 1600 10/30 0800 Intake Total 644 Output Total 500 Balance 144 General Appearance Alert, Cooperative HEENT Normal exam Lungs Clear to auscultation, Normal air movement Cardiovascular Regular rate and rhythm, No murmurs, gallops, rubs Abdomen Soft, uterus firm Extremities tr-1 edema bilaterally Assessment and Plan Problem List 1. care following vaginal delivery Plan Late delivery last night. Is doing well overall. Work today with technical assistance consultant and then likely d/c tomorrow.
[2016-10-31 07:58] VITALS: BP 108/47
[2016-10-31 16:30] VITALS: BP 121/63
[2016-11-01 01:00] VITALS: BP 113/56
--- NOTE | 2016-11-01 07:35 | Discharge Summary ---
Discharge Summary Report Admit Date 10/29/16 Discharge Date 11/01/16 Admission Diagnosis Labor, SROM, Term Discharge Diagnosis same and , 2nd degree laceration and repair, exceptionally large baby Brief History SROM no doc patient came to L&D; old records reviewed. Hospital Course Had pitosin augmentation of labor and then over 24hrs later OA position; no nuchal cord, 2nd degree lac; repaired. Refer to delivery Summary, Uncomplicated post . General Appearance Alert, Cooperative HEENT Atraumatic Lungs Clear to auscultation, Normal air movement Cardiovascular Regular Rate, No murmurs Abdomen Soft, No tenderness Skin No Significant Lesions Discharge Instructions/Meds d/c home; f/u at 6 weeks post
[2016-11-01] MEDS ORDERED: OXYCODONE/ACETA1 TA1 PO (07:38)
--- NOTE | 2016-11-01 07:38 | Provider's Discharge Care Plan ---
Problem, Goal, Plan Problem List 1. care following vaginal delivery Instructions: Follow up as directed
--- NOTE | 2016-11-01 07:38 | Provider's Discharge Care Plan ---
Problem, Goal, Plan Problem List 1. care following vaginal delivery Instructions: Follow up as directed
[2016-11-01 11:32] VITALS: BP 125/74
== END 2016-11-01 14:00 | disposition home or self-care (01) | DRG 775 ==
LOC: OBC SRH 15:35 → OB SRH 15:38 → OBC SRH 16:45 → OB SRH 16:46
PROVIDERS: ADMIT Family Medicine
DX: O32.3XX0 Maternal care for face, brow and chin presentation, not applicable or unspecified (principal); Z37.0 Single live birth; Z3A.39 39 weeks gestation of pregnancy; O70.1 Second degree perineal laceration during delivery; O42.02 Full-term premature rupture of membranes, onset of labor within 24 hours of rupture; O36.63X0 Maternal care for excessive fetal growth, third trimester, not applicable or unspecified
CPT/HCPCS: 40011; 81260; 81460; 83475; 84038; 90004; 91178; 91179; 91180; 91404; 91405; 91600; 91737; 91738; 91739; 92760; 92761; 92762; 92763; 92764; 92765; 92766; 92767; 95059